=== PATIENT | male | born 2000 | race Two or more races ===

== ENCOUNTER 2021-07-10 19:23 | Emergency (ER) | payer OTHER ==
[~2021-07-10] VITALS: Ht 175.3 cm; Wt 85.0 kg
[2021-07-10 19:26] VITALS: BP 128/83
[2021-07-10] MEDS ORDERED: BENZONATATE 100 MG CAPSULE ONE (21:49)
[2021-07-10] MEDS ORDERED: BENZONATATE 100 MG CAPSULE PO ONE (22:00)
--- NOTE | 2021-07-10 22:03 | NUR ---
PT MEDICATED PER MD ORDER. AND TOLERATED WELL. F/U AND D/C INSTRUCTIONS GIVEN TO PT AND HE V/U. AND PT AMBULATED TO DISCHARGE DESK.
== END 2021-07-10 22:05 | disposition home or self-care (01) ==
LOC: ED 21:50
DX: U07.1 COVID-19 (principal); J06.9 Acute upper respiratory infection, unspecified; J18.9 Pneumonia, unspecified organism
CPT/HCPCS: 99283